=== PATIENT | male | born 1990 | race Caucasian/White ===

== ENCOUNTER 2018-05-29 14:24 | Emergency (ER) | payer SELFPAY ==
[~2018-05-29] VITALS: Ht 165.1 cm; Wt 83.0 kg
[2018-05-29 14:37] VITALS: Ht 165.1 cm; Wt 83.0 kg
[2018-05-29 16:51] VITALS: BP 100/66
== END 2018-05-29 16:51 | disposition home or self-care (01) ==
LOC: ED 14:24
DX: S39.012A Strain of muscle, fascia and tendon of lower back, initial encounter (principal); S16.1XXA Strain of muscle, fascia and tendon at neck level, initial encounter; S63.91XA Sprain of unspecified part of right wrist and hand, initial encounter; V49.9XXA Car occupant (driver) (passenger) injured in unspecified traffic accident, initial encounter; Y93.I9 Activity, other involving external motion; Y92.413 State road as the place of occurrence of the external cause; Y99.8 Other external cause status
CPT/HCPCS: J1885